=== PATIENT | male | born 1935 | race Caucasian/White ===

== ENCOUNTER 2016-08-31 20:22 | Emergency (ER) | payer OTHER ==
--- NOTE | 2016-08-31 21:58 | ED ORDER SUMMARY ---
..... Patient: JIMENEZ CARRASCO OrderSheet [facility] VisitID: [id number] [address] [place] [address] 81y, M Registration Date/Time: 08/31/2016 ORDER SHEET Weight: 68.0 kg (stated) Allergies: No Known Drug Allergy GENERAL ORDERS: Hydrology Teacher (Continuous) (20:36 08/31/2016 DBeyer R.N. per protocol) (Ack 20:51 LMuller) (21:17 DBeyer R.N.) Cardiac Panel Stat (20:36 08/31/2016 DBeyer R.N. per protocol) (Ack 20:51 LMuller) (20:56 LMuller) CBC w Diff Urgent (20:36 08/31/2016 DBeyer R.N. per protocol) (20:43 EInderbitzen R.N.) (Cancelled: Duplicate Order20:43 EInderbitzen R.N.) CMP Urgent (20:36 08/31/2016 DBeyer R.N. per protocol) (20:43 EInderbitzen R.N.) (Cancelled: Duplicate Order20:43 EInderbitzen R.N.) PT with INR Urgent (20:36 08/31/2016 DBeyer R.N. per protocol) (20:43 EInderbitzen R.N.) (Cancelled: Duplicate Order20:43 EInderbitzen R.N.) Amylase Urgent (20:36 08/31/2016 DBeyer R.N. per protocol) (Ack 20:51 LMuller) (20:56 LMuller) Lipase Urgent (20:36 08/31/2016 DBeyer R.N. per protocol) (Ack 20:51 LMuller) (20:57 LMuller) Chest 1V Urgent (20:37 08/31/2016 DBeyer R.N. per protocol) (Ack 20:51 LMuller) (21:05 LMuller) EKG - ER Stat (20:51 08/31/2016 Alethea BAUER) (Ack 20:56 LMuller) (21:05 LMuller) Blood Culture (No) (N/A) Urgent (20:54 08/31/2016 Alethea BAUER) (Ack 20:56 LMuller) (21:17 DBeyer R.N.) PCT (Procalcitonin) Urgent (20:54 08/31/2016 Alethea BAUER) (Ack 20:56 LMuller) (20:57 LMuller) BNP Urgent (21:00 08/31/2016 Alethea BAUER) (21:05 LMuller) Oxygen (15 L/min) (Non-Rebreather Mask) (21:57 08/31/2016 Juan Hickey) (22:25 HOShaughnessy R.N.) Lactic Acid for Sepsis Protocol Urgent (22:08 08/31/2016 DBeyer R.N. per protocol) (22:12 LMuller) Rapid Influenza Screen (Nasal Pharyngeal) (mucus) Urgent (23:50 08/31/2016 Juan Hickey) (Ack 23:52 LMuller) (0:44 HOShaughnessy R.N.) RSV Rapid Screen (Nasal Pharyngeal) (mucus) Urgent (23:51 08/31/2016 Juan Hickey) (Ack 23:52 LMuller) (0:44 HOShaughnessy R.N.) MEDICATION ORDERS: IV FLUIDS: IV Saline Lock (20:36 08/31/2016 DBeyer R.N. per protocol) (20:36 DBeyer R.N.) IV NS : initial bolus 500 mL (1000 mL/hr), then 125 mL/hr for 4h (NOW); Urgent (20:53 08/31/2016 Alethea BAUER) (21:07 DBeyer R.N.) Vancomycin IV 1 gm/200mL (NOW) (22:40 08/31/2016 Juan Hickey) (22:57 HOShaughnessy R.N.) Zosyn IV 4.5 gm/100mL (NOW) (22:40 08/31/2016 Juan Hickey) (Ack 22:57 HOShaughnessy R.N.) (0:10 HOShaughnessy R.N.) Levaquin IV 750 mg/150 mL (NOW) (22:41 08/31/2016 Juan Hickey) (Ack 22:57 HOShaughljy R.N.) (0:42 HOShaughnessy R.N.) ORDER SHEET NOTES: [Electronically signed by Rohan Coleman R.N. (09/01/2016)] [Electronically signed by Hudson James Dr. (17:46 09/06/2016)] [Electronically locked/signed by Rohan Coleman R.N. (09/01/2016)]
--- NOTE | 2016-08-31 21:58 | ED NURSING NOTES ---
Clinical Report - Nurses [facility] [address] [place] [address] 08/31/2016 20:21 Patient: JIMENEZ CARRASCO TRIAGE Triage time 20:Aug 31 2016. Acuity: LEVEL 3. Chief Complaint: FEVER and "NOT FEELING WELL". --20:32 Carlos Nicholson R.N. 20:27 08/31/16. BP: 138/70. HR: 101. RR: 20. O2 saturation: 86%. Temp: 100.3 F. Pain level now 10/12. --20:32 Carlos Nicholson R.N. Weight: 68 kg stated. Height/Length: 70 inches Per Patient. BMI: 21.5. --20:31 Carlos Nicholson R.N. Medications None. --20:28 Carlos Nicholson R.N. Allergies No Known Drug Allergy. --20:28 Carlos Nicholson R.N. History Arrived by EMS. ( Pt reports sickness for five days including SOB and weakness). Onset. (5 days). SOCIAL HX: Former smoker. Alcohol use; consumes wine occasionally. No drug use. --20:32 Carlos Nicholson R.N. PROBLEMS: Spleen rupture. Collapsed lung. --20:30 Carlos Nicholson R.N. Interventions ID band on patient. To treatment room. --20:32 Carlos Nicholson R.N. PHYSICAL ASSESSMENT GENERAL / NEURO / PSYCH: Alert. Oriented X 4. Appears in no acute distress. HEENT: Pupils equal, round and reactive to light. Mucous membranes are pink. RESPIRATORY: Mild respiratory distress. Decreased breath sounds in the bases bilaterally. CVS: Normal sinus rhythm noted. Capillary refill less than 2 seconds. Pulses within normal limits. GI / : Abdomen soft and nontender. SKIN: Skin is warm and dry. --20:33 Carlos Nicholson R.N. 20:33 08/31/16. RESPIRATORY: Decreased breath sounds in the left lung. --21:54 Carlos Nicholson R.N. NURSING PROGRESS NOTES Oxygen administered. lag screwer and pulse oximeter placed on patient. Patient gowned. Two patient identifiers checked. Call light placed in reach. Side rails up x 1. Bed placed in lowest position. ( Pt placed on 3L 02 for saturation of 85% on RA increased to 96%). --20:34 Carlos Nicholson R.N. 20:36 08/31/2016 Site #1 started via IV in the right antecubital space with an 18g angiocath, with aseptic technique and good blood return; one attempt. Blood drawn: rainbow set and cultures x1. Labeled in the presence of the patient and sent to the lab. Saline lock flushed with saline. --20:36 Carlos Nicholson R.N. 21:07 08/31/2016 Started bag #1 500 mL IV Fluids IV NS (Saline); bolus of 500 mL wide open then at 500 mL/hr over 1 hour(s) via site #1 via IV pump. Allergies verified and confirmed 5 rights. IV patency established. IV site checked: no pain, redness, or swelling. IV flushed thoroughly pre- and post-medication administration. --21:07 Carlos Nicholson R.N. 21:08 08/31/16. BP: 125/56. HR: 95. RR: 18. O2 saturation: 94%. --21:09 Carlos Nicholson R.N. EKG time: (2130 PM). EKG was ordered, performed by a tech and shown to the ED physician. --21:37 Lexii Bishop 21:52 08/31/16. BP: 125/50. HR: 92. RR: 16. O2 saturation: 95%. Temp: 99.3 F. --21:52 Carlos Nicholson R.N. ( Pt placed on 15L non- rebreather mask tolerating well, IV ns rate decreased to 125). --22:06 Carlos Nicholson R.N. ( report to juarez ANN). --22:08 Carlos Nicholson R.N. 22:57 08/31/2016 Started 1 gm of Vancomycin IVPB in bag #1 200 mL; at 200 mL/hr over 1 hour(s) via site #1 via IV pump. Allergies verified and confirmed 5 rights. IV patency established. IV site checked: no pain, redness, or swelling. IV flushed thoroughly pre- and post-medication administration. --22:57 Juarez Coleman R.N. 23:31 08/31/16. BP: 130/56. HR: 84. RR: 16. O2 saturation: 100% on room air. O2 started at 15 liters/minute. --23:31 Juarez Coleman R.N. The patient is calm and resting quietly. Overall patient status is improved- he states feels better. GENERAL / NEURO / PSYCH: Alert. Oriented X 4. --23:31 Juarez Coleman R.N. 23:58 08/31/2016 Vancomycin IVPB Discontinued: bag #1 infused. Total amount infused: 200 mL. IV patency established. IV site checked: no pain, redness, or swelling. IV flushed thoroughly. --23:58 Juarez Coleman R.N. 00:10 09/01/2016 Started 4.5 gm of Zosyn (Piperacillin Sod-Tazobactam So) IVPB in bag #1 100 mL; at 100 mL/hr over 1 hour(s) via site #1 via IV pump. Allergies verified and confirmed 5 rights. IV patency established. IV site checked: no pain, redness, or swelling. IV flushed thoroughly pre- and post-medication administration. --00:10 Juarez Coleman R.N. 00:42 09/01/2016 Started 750 mg of Levaquin (Levofloxacin) IVPB in bag #1 150 mL; at 100 mL/hr over 90 minute(s) via site #1 via IV pump. Allergies verified and confirmed 5 rights. IV patency established. IV site checked: no pain, redness, or swelling. IV flushed thoroughly pre- and post-medication administration. --00:42 Juarez Coleman R.N. 00:42 09/01/2016 Zosyn IVPB Continued: upon transfer at the rate of 100 mL/hr. 50 mL remaining bag #1. IV patency established. IV site checked: no pain, redness, or swelling. IV flushed thoroughly. --00:42 Juarez Coleman R.N. DISPOSITION / DISCHARGE Transferred. Summary of care provided to transfer facility via paper ([facility]). Report was given to a nurse via a phone call. Report included patient's care, treatment, medications, reviewed medication reconcilliation, and condition (including any recent changes or anticipated changes). All questions were answered. Report was acknowledged and care was transferred. --00:43 Juarez Coleman R.N. 00:42 09/01/16. BP: 129/61. HR: 82. RR: 16. O2 saturation: 98% on non-rebreather. O2 started at 15 liters/minute. --00:43 Juarez Coleman R.N. Locked/Released at 09/01/2016 1:28 by Juarez Coleman R.N.
--- NOTE | 2016-08-31 21:58 | ED CLINICAL REPORT ---
Clinical Report - Physicians/Mid Levels [facility] [address] [place] [address] 08/31/2016 20:21 Patient: JIMENEZ CARRASCO Time Seen: 20:40. Arrived- By private vehicle. Historian- patient. HISTORY OF PRESENT ILLNESS Chief Complaint: DYSPNEA. This started about 1 week ago and is still present. It was gradual in onset and has been constant and waxing/waning. The dyspnea is severe and is worsened by exertion. The patient has had a cough, a subjective fever, wheezing, chills and dyspnea on exertion. He has had moderate amounts of thick, yellow, white sputum. He has had moderate, pressure-like left-sided and central chest pain, currently gone. Similar symptoms previously: None. Recent medical care: Not recently seen/assessed. REVIEW OF SYSTEMS No nausea, vomiting, abdominal pain or pain or headache. No skin rash, black stools, bloody stools, constipation or diarrhea. No nausea or urinary problems. He has had a subjective fever and chills. He has had palpitations (chronically). It has been similar to previous symptoms. All systems otherwise negative, except as recorded above. PAST HISTORY PCP - Mi. Problems: Spleen rupture. Collapsed lung. Medications: None. Allergies: No Known Drug Allergy. SOCIAL HISTORY Former smoker, end date 1966. No alcohol use. Residence: [place] Resides in a house. He lives alone. FAMILY HISTORY mother due to surgical complications father due to suicide. ADDITIONAL NOTES The nursing notes have been reviewed. PHYSICAL EXAM Vital Signs: 08/31/2016 20:27 BP: 138/70. HR: 101. RR: 20. O2 saturation: 86%. Temp: 100.3 F. Have been reviewed. Appearance: The patient appears frail, elderly and unkempt. Eyes: Pupils equal, round and reactive to light. Eyes normal inspection. ENT: Pharynx normal. Neck: Normal inspection. CVS: Normal heart rate and rhythm. Heart sounds normal. Respiratory: Mildly decreased air movement in the left lung base posteriorly, mid-lung posteriorly and upper lung posteriorly. Abdomen: Soft and nontender. No organomegaly. Back: (kyphotic). Skin: Skin warm and dry. Extremities: Extremities exhibit normal ROM. No calf tenderness. No lower extremity edema. LABS, X-RAYS, AND EKG EKG: No acute ischemia. Rate: 94. Normal P waves. Normal CHAITANYA. Normal QRS complex. Normal axis. Normal ST and T waves, QT and QTc. The study has been interpreted contemporaneously by me. The study has been independently viewed by me. Artifact present. Chest X-ray: (PROCEDURE: XR CHEST 1 VIEW INDICATION: SHORTNESS OF BREATH TECHNIQUE: Single view chest. 2057 COMPARISON: None FINDINGS: Normal sized heart. Normal aortic caliber. Superior retraction of the left hilum. Mildly prominent pulmonary arteries. No definite central venous congestion. Diffuse peribronchial thickening. Extensive coarse calcification/plaque involving the left upper lobe pleural surface and bilateral diaphragmatic plaquing. Questionable mild patchy scattered alveolar opacities in the right lung. No pneumothorax. Radiodense debris projecting over the left glenohumeral joint. No acute fracture. IMPRESSION: 1. Peribronchial thickening and scattered alveolar opacities seen in the right lung may be bronchitis with atelectatic changes or early pneumonia. This could also represent chronic bronchitis. 2. Bilateral pleural plaquing, most extensive in the left upper lung. This suggests asbestosis or remote post-traumatic changes. 3. Findings superimposed on mild emphysema.). Laboratory Tests: CBC w Diff: (BERTIN: 08/31/2016 20:35) ( MsgRcvd 08/31/2016 21:47) Final results Test Result Flag Units (Reference) WHITE BLOOD COUNT 15.7 H K/uL (4.5-11.5) RED BLOOD COUNT 4.30 L M/uL (4.50-5.90) HEMOGLOBIN 14.0 gm/dL (13.5-17.5) HEMATOCRIT 42.6 % (41.0-53.0) MEAN CELL VOLUME 99 fL (80-100) MEAN CORPUSCULAR HGB 33 pg (26-34) MEAN CORPUSCULAR HGB CONC 33 g/dL (31-37) RED CELL DISTRIBUTION WIDTH 14.4 % (11.6-14.8) PLATELET COUNT 204 K/uL (150-400) NEUTROPHIL % 84.4 H % (50-75) LYMPH % 5.1 L % (25-40) MONO % 10.3 % (3-14) EOSINOPHIL % 0.1 % (0-4) BASOPHIL % 0.1 % (0-2) RBC MORPHOLOGY NORMAL Lactate, Serum: (BERTIN: 08/31/2016 22:08) ( [facility] 08/31/2016 22:44) Final results Test Result Flag Units (Reference) LACTIC ACID 1.5 mmol/L (0.4-2.0) BNP: (BERTIN: 08/31/2016 20:35) ( [facility] 08/31/2016 21:49) Final results Test Result Flag Units (Reference) B-TYPE NATRIURETIC PEPTIDE 74.0 pg/ml (5-100) [id number]: (BERTIN: 08/31/2016 20:39) ( [facility] 08/31/2016 21:55) Final results Test Result Flag Units (Reference) PROCALCITONIN <0.5 ng/mL (0-0.5) PCT Concentration: Interpretation : Risk/option for action PCT <=0.5 ng/mL : Systemic : Low risk forinfection(sepsis): progression to severeis not likely. : systemic infection.Local bacterial : CAUTION-PCT levelsinfection is : below 0.5 ng/mL do notpossible. : exclude an infection,because localizedinfections (withoutsystemic signs) may beassociated with suchlow levels. If PCT ismeasured very earlyafter a bacterialchallenge (usually <6hours), these valuesmay still be low. Inthis case PCT shouldbe re-assessed 6-24hours later. PCT >0.5 and : Systemic infection: Moderate risk for<= 2 ng/mL : (sepsis) is : progression to severepossible, but : systemic infection.other conditions : The patient should beare known to : closely monitoredelevate PCT. : both clinically andby re-assessing PCTwithin 6-24 hours. PCT > 2 ng/mL : Systemic infection: High risk for(sepsis) is likely: progression to severeunless other : systemic infection.causes are known. : PCT >= 10 ng/mL : Important systemic: High likelihood ofinflammatory : severe sepsis orresponse, almost : septic shock.exclusively due to:severe bacterial :sepsis or septic :shock. : Lipase: (BERTIN: 08/31/2016 20:35) ( [facility] 08/31/2016 21:50) Final results Test Result Flag Units (Reference) LIPASE 64 L U/L (73-393) AMYLASE 20 L U/L (25-115) CHEM 13 PANEL: (BERTIN: 08/31/2016 20:35) ( [facility] 08/31/2016 21:50) Final results Test Result Flag Units (Reference) GLUCOSE 110 mg/dL (70-110) BUN 26 H mg/dL (7-18) CREATININE 1.1 mg/dL (0.6-1.3) Estimated GFR >60 mL/min Estimated GFR- >60 mL/min Note: Persistent reduction over 3 months in eGFR<60 mL/min/1.73 m2 defines CKD. Patients with eGFR values>=60 mL/min/1.73 m2 may also have CKD if evidence ofpersistent proteinuria. Additional information may be foundat www.[email or web address].org. SODIUM 137 mmol/L (136-145) POTASSIUM 4.1 mmol/L (3.5-5.1) CHLORIDE 101 mmol/L (98-107) CARBON DIOXIDE 29 mmol/L (21-32) CALCIUM 9.2 mg/dL (8.5-10.1) TOTAL PROTEIN 7.2 g/dL (6.4-8.2) ALBUMIN 2.9 L g/dL (3.3-5.0) BILIRUBIN, TOTAL 1.6 H mg/dL (0.0-1.0) ALKALINE PHOSPHATASE 67 U/L (46-116) AST (SGOT) 11 L U/L (15-37) ALT (SGPT) 12 U/L (12-78) MAGNESIUM 1.9 mg/dL (1.8-2.4) CPK 33 U/L (24-260) TROPONIN I <0.05 L ng/mL (0.00-1.5) TROPONIN REFERENCE RANGE:<0.1 NEGATIVE0.1-1.5 INDETERMINANT>1.5 POSITIVE . PROGRESS AND PROCEDURES Course of Care: 21:08 08/31/16. The case was discussed with Dr. Jordan at change of shift reviewed the patient's history and examination findings. He will follow up on the results of the patient's pending studies and will arrange an appropriate disposition for him. - ZULEMA the patient is a pleasant 81-year-old male presenting for evaluation of shortness of breath and chest pain. The patient has been previously evaluated by the doctor on shift before me. I am assuming care of the patient at shift change. Patient has been evaluated by me personally. Patient is resting in bed and in no acutrod forudies are ps e. Chest x-ay cu Patie does not appear toxic at this time. Oxygen saturations are noted in the mid 90s with 3 L via nasal cannula. We will increase this to nonrebreather mask at 15 L of oxygen. Patient's workup was significant for an elevated white blood cell count at 15.7. Patient's lactic acid is pending. We will still waiting for the lactic acid. PCT is noted to Rest of patient's laboratory studies is otherwise unremarkable. Patient is noted to be septic on laboratory studies and evaluation. Patient will be admitted to the hospital. Consulted the hospitalist and because of the patient's pneumothorax and pneumonia that is been occurring, they do not feel comfortable with accepting the patient. I spoken to the hospitalist and had offered to have a chest tube placed on the floor of the patient needs one emergently. Interventional radiology could also place a patient tell catheter during normal business hours if that is also an option. Despite this, the hospitalist was not comfortable with the admission. Patient will be transferred to another facility that can take the patient. Unfortunately through the course of the patient's stay here in the emergency department, facilities were not available to accommodate a patient with a pneumothorax and pneumonia. According to the hospital revises at several hospitals, patient required intensive care unit level of care. We have consulted [facility] as well as [facility]. Unfortunately do not have beds. We were fortunately able [facility] and I was able to speak to a Dr. Pena who will be accepting the patieensmthe transfer. And about extroverted been started prior to the process of admission/transfer. Blood cultures were Accardi obtained. Lactic acid is noted to be normal 1.5. Discussed with patient workup and diagnosis as well as plan of care. Also discussed this with the patient's daughter. Patient is agreeable to the transfer as well as plan of care. At the time of transfer, patient noted to be in good spirits. Patient otherwise in no acute distress. Patient was transferred without any complications. Critical care performed (65 minutes). Time is exclusive of separately billable procedures. Time includes: direct patient care, patient reassessment, coordination of patient care, interpretation of data (laboratory data), review of patient's medical records, medical consultation, family consultation regarding treatment decisions and documentation of patient care. Disposition: Benefits, risks and alternatives to transfer explained to patient and family. Transferred. [facility]. CLINICAL IMPRESSION acute sepsis bilateral pneumonia chronic left side pneumothorax. (Electronically signed by Hudson James Dr. 09/06/2016 17:46)
--- NOTE | 2016-08-31 21:58 | ED CLINICAL REPORT ---
Clinical Report - Physicians/Mid Levels [facility] [address] [place] [address] 08/31/2016 20:21 Patient: JIMENEZ CARRASCO Time Seen: 20:40. Arrived- By private vehicle. Historian- patient. HISTORY OF PRESENT ILLNESS Chief Complaint: DYSPNEA. This started about 1 week ago and is still present. It was gradual in onset and has been constant and waxing/waning. The dyspnea is severe and is worsened by exertion. The patient has had a cough, a subjective fever, wheezing, chills and dyspnea on exertion. He has had moderate amounts of thick, yellow, white sputum. He has had moderate, pressure-like left-sided and central chest pain, currently gone. Similar symptoms previously: None. Recent medical care: Not recently seen/assessed. REVIEW OF SYSTEMS No nausea, vomiting, abdominal pain or pain or headache. No skin rash, black stools, bloody stools, constipation or diarrhea. No nausea or urinary problems. He has had a subjective fever and chills. He has had palpitations (chronically). It has been similar to previous symptoms. All systems otherwise negative, except as recorded above. PAST HISTORY PCP - Mi. Problems: Spleen rupture. Collapsed lung. Medications: None. Allergies: No Known Drug Allergy. SOCIAL HISTORY Former smoker, end date 1966. No alcohol use. Residence: [place] Resides in a house. He lives alone. FAMILY HISTORY mother due to surgical complications father due to suicide. ADDITIONAL NOTES The nursing notes have been reviewed. PHYSICAL EXAM Vital Signs: 08/31/2016 20:27 BP: 138/70. HR: 101. RR: 20. O2 saturation: 86%. Temp: 100.3 F. Have been reviewed. Appearance: The patient appears frail, elderly and unkempt. Eyes: Pupils equal, round and reactive to light. Eyes normal inspection. ENT: Pharynx normal. Neck: Normal inspection. CVS: Normal heart rate and rhythm. Heart sounds normal. Respiratory: Mildly decreased air movement in the left lung base posteriorly, mid-lung posteriorly and upper lung posteriorly. Abdomen: Soft and nontender. No organomegaly. Back: (kyphotic). Skin: Skin warm and dry. Extremities: Extremities exhibit normal ROM. No calf tenderness. No lower extremity edema. LABS, X-RAYS, AND EKG EKG: No acute ischemia. Rate: 94. Normal P waves. Normal CHAITANYA. Normal QRS complex. Normal axis. Normal ST and T waves, QT and QTc. The study has been interpreted contemporaneously by me. The study has been independently viewed by me. Artifact present. Chest X-ray: (PROCEDURE: XR CHEST 1 VIEW INDICATION: SHORTNESS OF BREATH TECHNIQUE: Single view chest. 2057 COMPARISON: None FINDINGS: Normal sized heart. Normal aortic caliber. Superior retraction of the left hilum. Mildly prominent pulmonary arteries. No definite central venous congestion. Diffuse peribronchial thickening. Extensive coarse calcification/plaque involving the left upper lobe pleural surface and bilateral diaphragmatic plaquing. Questionable mild patchy scattered alveolar opacities in the right lung. No pneumothorax. Radiodense debris projecting over the left glenohumeral joint. No acute fracture. IMPRESSION: 1. Peribronchial thickening and scattered alveolar opacities seen in the right lung may be bronchitis with atelectatic changes or early pneumonia. This could also represent chronic bronchitis. 2. Bilateral pleural plaquing, most extensive in the left upper lung. This suggests asbestosis or remote post-traumatic changes. 3. Findings superimposed on mild emphysema.). Laboratory Tests: CBC w Diff: (BERTIN: 08/31/2016 20:35) ( MsgRcvd 08/31/2016 21:47) Final results Test Result Flag Units (Reference) WHITE BLOOD COUNT 15.7 H K/uL (4.5-11.5) RED BLOOD COUNT 4.30 L M/uL (4.50-5.90) HEMOGLOBIN 14.0 gm/dL (13.5-17.5) HEMATOCRIT 42.6 % (41.0-53.0) MEAN CELL VOLUME 99 fL (80-100) MEAN CORPUSCULAR HGB 33 pg (26-34) MEAN CORPUSCULAR HGB CONC 33 g/dL (31-37) RED CELL DISTRIBUTION WIDTH 14.4 % (11.6-14.8) PLATELET COUNT 204 K/uL (150-400) NEUTROPHIL % 84.4 H % (50-75) LYMPH % 5.1 L % (25-40) MONO % 10.3 % (3-14) EOSINOPHIL % 0.1 % (0-4) BASOPHIL % 0.1 % (0-2) RBC MORPHOLOGY NORMAL Lactate, Serum: (BERTIN: 08/31/2016 22:08) ( [facility] [place] 08/31/[place] 22:44) Final results Test Result Flag Units (Reference) LACTIC ACID 1.5 mmol/L (0.4-2.0) BNP: (BERTIN: 08/31/2016 20:35) ( [facility] 08/31/2016 21:49) Final results Test Result Flag Units (Reference) B-TYPE NATRIURETIC PEPTIDE 74.0 pg/ml (5-100) [id number]: (BERTIN: 08/31/2016 20:39) ( [facility] 08/31/2016 21:55) Final results Test Result Flag Units (Reference) PROCALCITONIN <0.5 ng/mL (0-0.5) PCT Concentration: Interpretation : Risk/option for action PCT <=0.5 ng/mL : Systemic : Low risk forinfection(sepsis): progression to severeis not likely. : systemic infection.Local bacterial : CAUTION-PCT levelsinfection is : below 0.5 ng/mL do notpossible. : exclude an infection,because localizedinfections (withoutsystemic signs) may beassociated with suchlow levels. If PCT ismeasured very earlyafter a bacterialchallenge (usually <6hours), these valuesmay still be low. Inthis case PCT shouldbe re-assessed 6-24hours later. PCT >0.5 and : Systemic infection: Moderate risk for<= 2 ng/mL : (sepsis) is : progression to severepossible, but : systemic infection.other conditions : The patient should beare known to : closely monitoredelevate PCT. : both clinically andby re-assessing PCTwithin 6-24 hours. PCT > 2 ng/mL : Systemic infection: High risk for(sepsis) is likely: progression to severeunless other : systemic infection.causes are known. : PCT >= 10 ng/mL : Important systemic: High likelihood ofinflammatory : severe sepsis orresponse, almost : septic shock.exclusively due to:severe bacterial :sepsis or septic :shock. : Lipase: (BERTIN: 08/31/2016 20:35) ( [facility] [place] 08/31/2016 21:50) Final results Test Result Flag Units (Reference) LIPASE 64 L U/L (73-393) AMYLASE 20 L U/L (25-115) CHEM 13 PANEL: (BERTIN: 08/31/2016 20:35) ( [facility] [place] 21:50) Final results Test Result Flag Units (Reference) GLUCOSE 110 mg/dL (70-110) BUN 26 H mg/dL (7-18) CREATININE 1.1 mg/dL (0.6-1.3) Estimated GFR >60 mL/min Estimated GFR- >60 mL/min Note: Persistent reduction over 3 months in eGFR<60 mL/min/1.73 m2 defines CKD. Patients with eGFR values>=60 mL/min/1.73 m2 may also have CKD if evidence ofpersistent proteinuria. Additional information may be foundat www.[email or web address].org. SODIUM 137 mmol/L (136-145) POTASSIUM 4.1 mmol/L (3.5-5.1) CHLORIDE 101 mmol/L (98-107) CARBON DIOXIDE 29 mmol/L (21-32) CALCIUM 9.2 mg/dL (8.5-10.1) TOTAL PROTEIN 7.2 g/dL (6.4-8.2) ALBUMIN 2.9 L g/dL (3.3-5.0) BILIRUBIN, TOTAL 1.6 H mg/dL (0.0-1.0) ALKALINE PHOSPHATASE 67 U/L (46-116) AST (SGOT) 11 L U/L (15-37) ALT (SGPT) 12 U/L (12-78) MAGNESIUM 1.9 mg/dL (1.8-2.4) CPK 33 U/L (24-260) TROPONIN I <0.05 L ng/mL (0.00-1.5) TROPONIN REFERENCE RANGE:<0.1 NEGATIVE0.1-1.5 INDETERMINANT>1.5 POSITIVE . PROGRESS AND PROCEDURES Course of Care: 21:08 08/31/16. The case was discussed with Dr. Jordan at change of shift reviewed the patient's history and examination findings. He will follow up on the results of the patient's pending studies and will arrange an appropriate disposition for him. - ZULEMA the patient is a pleasant 81-year-old male presenting for evaluation of shortness of breath and chest pain. The patient has been previously evaluated by the doctor on shift before me. I am assuming care of the patient at shift change. Patient has been evaluated by me personally. Patient is resting in bed and in no acutrod forudies are ps e. Chest x-ay cu Patie does not appear toxic at this time. Oxygen saturations are noted in the mid 90s with 3 L via nasal cannula. We will increase this to nonrebreather mask at 15 L of oxygen. Patient's workup was significant for an elevated white blood cell count at 15.7. Patient's lactic acid is pending. We will still waiting for the lactic acid. PCT is noted to Rest of patient's laboratory studies is otherwise unremarkable. Patient is noted to be septic on laboratory studies and evaluation. Patient will be admitted to the hospital. Consulted the hospitalist and because of the patient's pneumothorax and pneumonia that is been occurring, they do not feel comfortable with accepting the patient. I spoken to the hospitalist and had offered to have a chest tube placed on the floor of the patient needs one emergently. Interventional radiology could also place a patient tell catheter during normal business hours if that is also an option. Despite this, the hospitalist was not comfortable with the admission. Patient will be transferred to another facility that can take the patient. Unfortunately through the course of the patient's stay here in the emergency department, facilities were not available to accommodate a patient with a pneumothorax and pneumonia. According to the hospital revises at several hospitals, patient required intensive care unit level of care. We have consulted [facility] as well as [facility]. Unfortunately do not have beds. We were fortunately able [facility] and I was able to speak to a Dr. Pena who will be accepting the patieensmthe transfer. And about extroverted been started prior to the process of admission/transfer. Blood cultures were Accardi obtained. Lactic acid is noted to be normal 1.5. Discussed with patient workup and diagnosis as well as plan of care. Also discussed this with the patient's daughter. Patient is agreeable to the transfer as well as plan of care. At the time of transfer, patient noted to be in good spirits. Patient otherwise in no acute distress. Patient was transferred without any complications. Critical care performed (65 minutes). Time is exclusive of separately billable procedures. Time includes: direct patient care, patient reassessment, coordination of patient care, interpretation of data (laboratory data), review of patient's medical records, medical consultation, family consultation regarding treatment decisions and documentation of patient care. Disposition: Benefits, risks and alternatives to transfer explained to patient and family. Transferred. [facility]. CLINICAL IMPRESSION acute sepsis bilateral pneumonia chronic left side pneumothorax. (Electronically signed by Hudson James Dr. 09/06/2016 17:46)
--- NOTE | 2016-08-31 21:58 | ED NURSING NOTES ---
Clinical Report - Nurses [facility] [address] [place] [address] 08/31/2016 20:21 Patient: JIMENEZ CARRASCO TRIAGE Triage time 20:Aug 31 2016. Acuity: LEVEL 3. Chief Complaint: FEVER and "NOT FEELING WELL". --20:32 Carlos Nicholson R.N. 20:27 08/31/16. BP: 138/70. HR: 101. RR: 20. O2 saturation: 86%. Temp: 100.3 F. Pain level now 10/12. --20:32 Carlos Nicholson R.N. Weight: 68 kg stated. Height/Length: 70 inches Per Patient. BMI: 21.5. --20:31 Carlos Nicholson R.N. Medications None. --20:28 Carlos Nicholson R.N. Allergies No Known Drug Allergy. --20:28 Carlos Nicholson R.N. History Arrived by EMS. ( Pt reports sickness for five days including SOB and weakness). Onset. (5 days). SOCIAL HX: Former smoker. Alcohol use; consumes wine occasionally. No drug use. --20:32 Carlos Nicholson R.N. PROBLEMS: Spleen rupture. Collapsed lung. --20:30 Carlos Nicholson R.N. Interventions ID band on patient. To treatment room. --20:32 Carlos Nicholson R.N. PHYSICAL ASSESSMENT GENERAL / NEURO / PSYCH: Alert. Oriented X 4. Appears in no acute distress. HEENT: Pupils equal, round and reactive to light. Mucous membranes are pink. RESPIRATORY: Mild respiratory distress. Decreased breath sounds in the bases bilaterally. CVS: Normal sinus rhythm noted. Capillary refill less than 2 seconds. Pulses within normal limits. GI / : Abdomen soft and nontender. SKIN: Skin is warm and dry. --20:33 Carlos Nicholson R.N. 20:33 08/31/16. RESPIRATORY: Decreased breath sounds in the left lung. --21:54 Carlos Nicholson R.N. NURSING PROGRESS NOTES Oxygen administered. radiation monitor and pulse oximeter placed on patient. Patient gowned. Two patient identifiers checked. Call light placed in reach. Side rails up x 1. Bed placed in lowest position. ( Pt placed on 3L 02 for saturation of 85% on RA increased to 96%). --20:34 Carlos Nicholson R.N. 20:36 08/31/2016 Site #1 started via IV in the right antecubital space with an 18g angiocath, with aseptic technique and good blood return; one attempt. Blood drawn: rainbow set and cultures x1. Labeled in the presence of the patient and sent to the lab. Saline lock flushed with saline. --20:36 Carlos Nicholson R.N. 21:07 08/31/2016 Started bag #1 500 mL IV Fluids IV NS (Saline); bolus of 500 mL wide open then at 500 mL/hr over 1 hour(s) via site #1 via IV pump. Allergies verified and confirmed 5 rights. IV patency established. IV site checked: no pain, redness, or swelling. IV flushed thoroughly pre- and post-medication administration. --21:07 Carlos Nicholson R.N. 21:08 08/31/16. BP: 125/56. HR: 95. RR: 18. O2 saturation: 94%. --21:09 Carlos Nicholson R.N. EKG time: (2130 PM). EKG was ordered, performed by a tech and shown to the ED physician. --21:37 Lexii Bishop 21:52 08/31/16. BP: 125/50. HR: 92. RR: 16. O2 saturation: 95%. Temp: 99.3 F. --21:52 Carlos Nicholson R.N. ( Pt placed on 15L non- rebreather mask tolerating well, IV ns rate decreased to 125). --22:06 Carlos Nicholson R.N. ( report to juarez ANN). --22:08 Carlos Nicholson R.N. 22:57 08/31/2016 Started 1 gm of Vancomycin IVPB in bag #1 200 mL; at 200 mL/hr over 1 hour(s) via site #1 via IV pump. Allergies verified and confirmed 5 rights. IV patency established. IV site checked: no pain, redness, or swelling. IV flushed thoroughly pre- and post-medication administration. --22:57 Juarez Coleman R.N. 23:31 08/31/16. BP: 130/56. HR: 84. RR: 16. O2 saturation: 100% on room air. O2 started at 15 liters/minute. --23:31 Juarez Coleman R.N. The patient is calm and resting quietly. Overall patient status is improved- he states feels better. GENERAL / NEURO / PSYCH: Alert. Oriented X 4. --23:31 Juarez Coleman R.N. 23:58 08/31/2016 Vancomycin IVPB Discontinued: bag #1 infused. Total amount infused: 200 mL. IV patency established. IV site checked: no pain, redness, or swelling. IV flushed thoroughly. --23:58 Juarez Coleman R.N. 00:10 09/01/2016 Started 4.5 gm of Zosyn (Piperacillin Sod-Tazobactam So) IVPB in bag #1 100 mL; at 100 mL/hr over 1 hour(s) via site #1 via IV pump. Allergies verified and confirmed 5 rights. IV patency established. IV site checked: no pain, redness, or swelling. IV flushed thoroughly pre- and post-medication administration. --00:10 Juarez Coleman R.N. 00:42 09/01/2016 Started 750 mg of Levaquin (Levofloxacin) IVPB in bag #1 150 mL; at 100 mL/hr over 90 minute(s) via site #1 via IV pump. Allergies verified and confirmed 5 rights. IV patency established. IV site checked: no pain, redness, or swelling. IV flushed thoroughly pre- and post-medication administration. --00:42 Juarez Coleman R.N. 00:42 09/01/2016 Zosyn IVPB Continued: upon transfer at the rate of 100 mL/hr. 50 mL remaining bag #1. IV patency established. IV site checked: no pain, redness, or swelling. IV flushed thoroughly. --00:42 Juarez Coleman R.N. DISPOSITION / DISCHARGE Transferred. Summary of care provided to transfer facility via paper ([place]). Report was given to a nurse via a phone call. Report included patient's care, treatment, medications, reviewed medication reconcilliation, and condition (including any recent changes or anticipated changes). All questions were answered. Report was acknowledged and care was transferred. --00:43 Juarez Coleman R.N. 00:42 09/01/16. BP: 129/61. HR: 82. RR: 16. O2 saturation: 98% on non-rebreather. O2 started at 15 liters/minute. --00:43 Juarez Coleman R.N. Locked/Released at 09/01/2016 1:28 by Juarez Coleman R.N.
--- NOTE | 2016-08-31 21:58 | ED ORDER SUMMARY ---
..... Patient: JIMENEZ CARRASCO OrderSheet [facility] VisitID: [id number] [address] [place] [address] 81y, M Registration Date/Time: 08/31/2016 ORDER SHEET Weight: 68.0 kg (stated) Allergies: No Known Drug Allergy GENERAL ORDERS: Switchman Supervisor (Continuous) (20:36 08/31/2016 DBeyer R.N. per protocol) (Ack 20:51 LMuller) (21:17 DBeyer R.N.) Cardiac Panel Stat (20:36 08/31/2016 DBeyer R.N. per protocol) (Ack 20:51 LMuller) (20:56 LMuller) CBC w Diff Urgent (20:36 08/31/2016 DBeyer R.N. per protocol) (20:43 EInderbitzen R.N.) (Cancelled: Duplicate Order20:43 EInderbitzen R.N.) CMP Urgent (20:36 08/31/2016 DBeyer R.N. per protocol) (20:43 EInderbitzen R.N.) (Cancelled: Duplicate Order20:43 EInderbitzen R.N.) PT with INR Urgent (20:36 08/31/2016 DBeyer R.N. per protocol) (20:43 EInderbitzen R.N.) (Cancelled: Duplicate Order20:43 EInderbitzen R.N.) Amylase Urgent (20:36 08/31/2016 DBeyer R.N. per protocol) (Ack 20:51 LMuller) (20:56 LMuller) Lipase Urgent (20:36 08/31/2016 DBeyer R.N. per protocol) (Ack 20:51 LMuller) (20:57 LMuller) Chest 1V Urgent (20:37 08/31/2016 DBeyer R.N. per protocol) (Ack 20:51 LMuller) (21:05 LMuller) EKG - ER Stat (20:51 08/31/2016 Alethea BAUER) (Ack 20:56 LMuller) (21:05 LMuller) Blood Culture (No) (N/A) Urgent (20:54 08/31/2016 Alethea BAUER) (Ack 20:56 LMuller) (21:17 DBeyer R.N.) PCT (Procalcitonin) Urgent (20:54 08/31/2016 Alethea BAUER) (Ack 20:56 LMuller) (20:57 LMuller) BNP Urgent (21:00 08/31/2016 Alethea BAUER) (21:05 LMuller) Oxygen (15 L/min) (Non-Rebreather Mask) (21:57 08/31/2016 Juan Hickey) (22:25 HOShaughnessy R.N.) Lactic Acid for Sepsis Protocol Urgent (22:08 08/31/2016 DBeyer R.N. per protocol) (22:12 LMuller) Rapid Influenza Screen (Nasal Pharyngeal) (mucus) Urgent (23:50 08/31/2016 Juan Hickey) (Ack 23:52 LMuller) (0:44 HOShaughnessy R.N.) RSV Rapid Screen (Nasal Pharyngeal) (mucus) Urgent (23:51 08/31/2016 Juan Hickey) (Ack 23:52 LMuller) (0:44 HOShaughnessy R.N.) MEDICATION ORDERS: IV FLUIDS: IV Saline Lock (20:36 08/31/2016 DBeyer R.N. per protocol) (20:36 DBeyer R.N.) IV NS : initial bolus 500 mL (1000 mL/hr), then 125 mL/hr for 4h (NOW); Urgent (20:53 08/31/2016 Alethea BAUER) (21:07 DBeyer R.N.) Vancomycin IV 1 gm/200mL (NOW) (22:40 08/31/2016 Juan Hickey) (22:57 HOShaughnessy R.N.) Zosyn IV 4.5 gm/100mL (NOW) (22:40 08/31/2016 Juan Hickey) (Ack 22:57 HOShaughnessy R.N.) (0:10 HOShaughnessy R.N.) Levaquin IV 750 mg/150 mL (NOW) (22:41 08/31/2016 Juan Hickey) (Ack 22:57 HOShaughljy R.N.) (0:42 HOShaughnessy R.N.) ORDER SHEET NOTES: [Electronically signed by Rohan Coleman R.N. (09/01/2016)] [Electronically signed by Hudson James Dr. (17:46 09/06/2016)] [Electronically locked/signed by Rohan Coleman R.N. (09/01/2016)]
--- NOTE | 2016-08-31 22:54 | DIAGNOSTIC IMAGING REPORT ---
PROCEDURE: XR CHEST 1 VIEW INDICATION: SHORTNESS OF BREATH TECHNIQUE: Single view chest. 2057 COMPARISON: None FINDINGS: Normal sized heart. Normal aortic caliber. Superior retraction of the left hilum. Mildly prominent pulmonary arteries. No definite central venous congestion. Diffuse peribronchial thickening. Extensive coarse calcification/plaque involving the left upper lobe pleural surface and bilateral diaphragmatic plaquing. Questionable mild patchy scattered alveolar opacities in the right lung. No pneumothorax. Radiodense debris projecting over the left glenohumeral joint. No acute fracture. IMPRESSION: 1. Peribronchial thickening and scattered alveolar opacities seen in the right lung may be bronchitis with atelectatic changes or early pneumonia. This could also represent chronic bronchitis. 2. Bilateral pleural plaquing, most extensive in the left upper lung. This suggests asbestosis or remote post-traumatic changes. 3. Findings superimposed on mild emphysema.
--- NOTE | 2016-09-06 17:46 | ED MED RECONCILIATION SUMMARY ---
Patient: JIMENEZ CARRASCO Medication Reconciliation Report [facility] VisitID: [id number] [address] [place] [address] 81y, M Registration Date/Time: 08/31/2016 Weight: 68.0 kg Height/Length: 70 in. BMI: 21.5 ALLERGIES: No Known Drug Allergy The patient's Home Medications are listed below: NONE. The source(s) of the original Home Medication information: Not obtained. The following Medications were given to the patient in the Emergency Department: IV NS IV Fluids bolus 500 mL wide open, then 500 mL/hr, administered: 08/31/2016 9:07:00 PM Vancomycin [IVPB] IVPB bolus 0, then 1 gm 200 mL/hr, administered: 08/31/2016 10:57:00 PM Zosyn [IVPB] IVPB bolus 0, then 4.5 gm 100 mL/hr, administered: 09/01/2016 12:10:00 AM Levaquin [IVPB] IVPB bolus 0, then 750 mg 100 mL/hr, administered: 09/01/2016 12:42:00 AM The following Medications were prescribed to the patient: None.
--- NOTE | 2016-09-06 17:46 | ED MAR SUMMARY ---
..... Medication Administration Record [facility] [address] [place] [address] Patient: JIMENEZ CARRASCO Visit ID: [id number] 81y, M Weight: 68.0 kg Height/Length: 70 in BMI: 21.5 ALLERGIES: No Known Drug Allergy Start 21:07 08/31/2016 Carlos Nicholson R.N. Medication Administered: IV NS (SALINE), Dose: IV Fluids over 1 hour(s), Rate: 500 mL/hr, Bolus: 500 mL wide open, Dispensed: 500 mL bag, Site: #1 right AC. Medication Ordered: IV NS : initial bolus 500 mL (1000 mL/hr), then 125 mL/hr for 4h (NOW); Urgent. Start 22:57 08/31/2016 Rohan Coleman R.N., Stop 23:58 08/31/2016 Rohan Coleman R.N. Medication Administered: VANCOMYCIN [IVPB], Dose: 1 gm IVPB over 1 hour(s), Rate: 200 mL/hr, Dispensed: 200 mL bag, Site: #1 right AC. Medication Ordered: Vancomycin IV 1 gm/200mL (NOW). Start 00:10 09/01/2016 Rohan Coleman R.N., Continued Upon Transfer 00:42 09/01/2016 Rohan Coleman R.N. Medication Administered: ZOSYN [IVPB] (PIPERACILLIN SOD-TAZOBACTAM SO), Dose: 4.5 gm IVPB over 1 hour(s), Rate: 100 mL/hr, Dispensed: 100 mL bag, Site: #1 right AC. Medication Ordered: Zosyn IV 4.5 gm/100mL (NOW). Start 00:42 09/01/2016 Rohan Coleman R.N. Medication Administered: LEVAQUIN [IVPB] (LEVOFLOXACIN), Dose: 750 mg IVPB over 90 minute(s), Rate: 100 mL/hr, Dispensed: 150 mL bag, Site: #1 right AC. Medication Ordered: Levaquin IV 750 mg/150 mL (NOW).
--- NOTE | 2016-09-06 17:46 | ED MED RECONCILIATION SUMMARY ---
Patient: JIMENEZ CARRASCO Medication Reconciliation Report [facility] VisitID: [id number] [address] [place] [address] 81y, M Registration Date/Time: 08/31/2016 Weight: 68.0 kg Height/Length: 70 in. BMI: 21.5 ALLERGIES: No Known Drug Allergy The patient's Home Medications are listed below: NONE. The source(s) of the original Home Medication information: Not obtained. The following Medications were given to the patient in the Emergency Department: IV NS IV Fluids bolus 500 mL wide open, then 500 mL/hr, administered: 08/31/2016 9:07:00 PM Vancomycin [IVPB] IVPB bolus 0, then 1 gm 200 mL/hr, administered: 08/31/2016 10:57:00 PM Zosyn [IVPB] IVPB bolus 0, then 4.5 gm 100 mL/hr, administered: 09/01/2016 12:10:00 AM Levaquin [IVPB] IVPB bolus 0, then 750 mg 100 mL/hr, administered: 09/01/2016 12:42:00 AM The following Medications were prescribed to the patient: None.
--- NOTE | 2016-09-06 17:46 | ED DISCHARGE INSTRUCTIONS ---
Patient: JIMENEZ CARRASCO General Instructions [facility] VisitID: [id number] [address] [place] [address] 81y, M Registration Date/Time: 08/31/2016 acute sepsis bilateral pneumonia chronic left side pneumothorax. (Electronically signed by Hudson James Dr. 09/06/2016 17:46)
--- NOTE | 2016-09-06 17:46 | ED MAR SUMMARY ---
..... Medication Administration Record [facility] [address] [place] [address] Patient: JIMENEZ CARRASCO Visit ID: [id number] 81y, M Weight: 68.0 kg Height/Length: 70 in BMI: 21.5 ALLERGIES: No Known Drug Allergy Start 21:07 08/31/2016 Carlos Nicholson R.N. Medication Administered: IV NS (SALINE), Dose: IV Fluids over 1 hour(s), Rate: 500 mL/hr, Bolus: 500 mL wide open, Dispensed: 500 mL bag, Site: #1 right AC. Medication Ordered: IV NS : initial bolus 500 mL (1000 mL/hr), then 125 mL/hr for 4h (NOW); Urgent. Start 22:57 08/31/2016 Rohan Coleman R.N., Stop 23:58 08/31/2016 Rohan Coleman R.N. Medication Administered: VANCOMYCIN [IVPB], Dose: 1 gm IVPB over 1 hour(s), Rate: 200 mL/hr, Dispensed: 200 mL bag, Site: #1 right AC. Medication Ordered: Vancomycin IV 1 gm/200mL (NOW). Start 00:10 09/01/2016 Rohan Coleman R.N., Continued Upon Transfer 00:42 09/01/2016 Rohan Coleman R.N. Medication Administered: ZOSYN [IVPB] (PIPERACILLIN SOD-TAZOBACTAM SO), Dose: 4.5 gm IVPB over 1 hour(s), Rate: 100 mL/hr, Dispensed: 100 mL bag, Site: #1 right AC. Medication Ordered: Zosyn IV 4.5 gm/100mL (NOW). Start 00:42 09/01/2016 Rohan Coleman R.N. Medication Administered: LEVAQUIN [IVPB] (LEVOFLOXACIN), Dose: 750 mg IVPB over 90 minute(s), Rate: 100 mL/hr, Dispensed: 150 mL bag, Site: #1 right AC. Medication Ordered: Levaquin IV 750 mg/150 mL (NOW).
--- NOTE | 2016-09-06 17:46 | ED DISCHARGE INSTRUCTIONS ---
Patient: JIMENEZ CARRASCO General Instructions [facility] VisitID: [id number] [address] [place] [address] 81y, M Registration Date/Time: 08/31/2016 acute sepsis bilateral pneumonia chronic left side pneumothorax. (Electronically signed by Hudson James Dr. 09/06/2016 17:46)
== END 2016-09-01 01:17 | disposition short-term general hospital (02) ==
LOC: ED SRH 20:22
DX: A41.9 Sepsis, unspecified organism (principal); J18.9 Pneumonia, unspecified organism; J93.81 Chronic pneumothorax; Z87.891 Personal history of nicotine dependence
CPT/HCPCS: 90065; 90100; 90616; 91320; 91400; 91576; 92031; 92235; 92530; 92610; 92720; 93004; 95059